=== PATIENT | male | born 1970 | race Caucasian/White ===

== ENCOUNTER 2023-04-04 09:52 | Emergency (ER) | payer OTHER ==
[~2023-04-04] VITALS: Ht 185.4 cm; Wt 114.8 kg
[2023-04-04] MEDS ORDERED: MICARDIS40 MG PO (10:34)
[2023-04-04] MEDS ORDERED: METOPROLOL SUC100 MG PO (10:34)
[2023-04-04] MEDS ORDERED: TOPROL XL100 M1 PO (10:34)
[2023-04-04] MEDS ORDERED: SINGULAIR10 MG PO (10:35)
[2023-04-04] MEDS ORDERED: CLARITIN10 M1 PO (10:35)
[2023-04-04] MEDS ORDERED: ZITHROMAX500 MG PO (12:09)
[2023-04-04] MEDS ORDERED: INTESTINEX680 M1 PO (12:09)
== END 2023-04-04 12:18 | disposition home or self-care (01) ==
LOC: ER 09:52
PROVIDERS: General Practice
DX: J06.9 Acute upper respiratory infection, unspecified (principal); I10 Essential (primary) hypertension; J31.0 Chronic rhinitis; Z91.041 Radiographic dye allergy status; Z91.013 Allergy to seafood; Z20.822 Contact with and (suspected) exposure to COVID-19